=== PATIENT | male | born 1970 | race Caucasian/White ===

== ENCOUNTER 2018-12-26 11:50 | Emergency (ER) | payer OTHER ==
[~2018-12-26] VITALS: Ht 165.1 cm; Wt 187.0 kg
[~2018-12-26 11:50] MED LIST: CEPH-443 PO; SULF1TAB31 PO
[2018-12-26 12:13] VITALS: BP 112/98; PULSE 79; RESP 18; Ht 165.1 cm; Wt 187.0 kg
== END 2018-12-26 13:46 | disposition home or self-care (01) ==
LOC: FTE 11:50
DX: L02.413 Cutaneous abscess of right upper limb (principal)
CPT/HCPCS: 99282